=== PATIENT | female | born 1980 | race Caucasian/White ===

== ENCOUNTER → 2020-06-14 | Outpatient (CLI) | payer MEDICARE, OTHER ==
[~2020-06-14] MED LIST: ABILIFY MYCITE20 MG PO; CERTAVITE SR-A1 EACH PO; CLARITIN 10MG T10 MG PO; DEPAKOTE 250 M250 MG PO; DEPAKOTE500 MG PO; DYMISTA NASAL S23 GM; EUTHYROX112 MCG PO; FENOFIBRATE160 MG PO; FLONASE 0.05% N16 GM; IMIPRAMINE HCL25 MG PO; KAO-TIN240 MG PO; LASIX TAB 20 MG20 MG PO; OMNICEF 300 MG300 MG PO; OXYBUTYNIN CHLOR5 M1 PO; PHENERGAN 25 MG25 M1 PO; TRI-SPRINTEC T1 EACH PO
[2020-06-15 09:15] LABS: CREATININE, URINE 47.4 mg/dL (Not Estab.)
== END ==
LOC: US 10:35
PROVIDERS: Internal Medicine Nephrology
DX: N18.9 Chronic kidney disease, unspecified (principal)
CPT/HCPCS: 36415; 80053; 81001; 82043; 82570; 84156

== ENCOUNTER → 2020-06-19 | Outpatient (CLI) | payer MEDICARE, OTHER | LOC: LAB 14:43 | DX: N18.9 Chronic kidney disease, unspecified (principal); N39.0 Urinary tract infection, site not specified | CPT/HCPCS: 36415; 87077; 87086; 87186 ==

== ENCOUNTER → 2020-10-22 | Outpatient (CLI) | payer MEDICARE, OTHER ==
[2020-10-23 11:14] LABS: CREATININE, URINE 101.8 mg/dL (Not Estab.)
== END ==
LOC: LAB 09:04
PROVIDERS: Internal Medicine Nephrology
DX: N18.9 Chronic kidney disease, unspecified (principal)
CPT/HCPCS: 36415; 80053; 82043; 82570; 84156

== ENCOUNTER → 2021-03-27 | Outpatient (CLI) | payer MEDICARE, OTHER ==
[2021-03-28 08:13] LABS: A/G RATIO 1.2 (1.2-2.2); ALKALINE PHOSPHATASE, S 68 IU/L (44-121); ALT (SGPT) 23 IU/L (0-32); AST (SGOT) 27 IU/L (0-40); BILIRUBIN, TOTAL <0.2 mg/dL (0.0-1.2); BUN 14 mg/dL (6-20); BUN/CREATININE RATIO 10 (9-23); CALCIUM, SERUM 9.9 mg/dL (8.7-10.2); CARBON DIOXIDE, TOTAL 22 mmol/L (20-29); CHLORIDE, SERUM 102 mmol/L (96-106); CREATININE, SERUM 1.34 mg/dL (0.57-1.00); EGFR IF AFRICN AM 58 (>59); EGFR IF NONAFRICN AM 50 (>59); GLOBULIN, TOTAL 3.3 g/dL (1.5-4.5); GLUCOSE, SERUM 121 mg/dL (65-99); POTASSIUM, SERUM 4.5 mmol/L (3.5-5.2); PROTEIN, TOTAL, SERUM 7.3 g/dL (6.0-8.5); SODIUM, SERUM 138 mmol/L (134-144)
[2021-03-28 09:13] LABS: CREATININE, URINE 52.7 mg/dL (Not Estab.)
== END ==
LOC: LAB 08:59
PROVIDERS: Internal Medicine Nephrology
DX: N18.9 Chronic kidney disease, unspecified (principal)
CPT/HCPCS: 36415; 80053; 81001; 82043; 82570; 84156

== ENCOUNTER 2021-04-08 02:46 | Emergency (ER) | payer MEDICARE, OTHER ==
[2021-04-08 03:34] LABS: HEMOGLOBIN 12.5 gm/dl (12.3-15.3); RED BLOOD COUNT 4.43 M/UL (4.00-5.10); WHITE BLOOD COUNT 5.5 K/UL (4.5-11.0)
[2021-04-08] MEDS ORDERED: ZOFRAN 4 MG TAB4 MG PO (06:24)
[2021-04-08] MEDS ORDERED: PHENERGAN 25 MG25 M1 PO (06:24)
[2021-04-08] MEDS ORDERED: OMNICEF 300 MG300 MG PO (06:24)
[2021-04-08] MEDS ORDERED: TESSALON PERLES PO (06:27)
== END 2021-04-08 08:58 | disposition home or self-care (01) ==
LOC: ER1 02:46
PROVIDERS: Physician Assistant
DX: K91.0 Vomiting following gastrointestinal surgery (principal); U07.1 COVID-19; N39.0 Urinary tract infection, site not specified; N18.9 Chronic kidney disease, unspecified; G40.909 Epilepsy, unspecified, not intractable, without status epilepticus; E78.5 Hyperlipidemia, unspecified
CPT/HCPCS: 0240U; 80053; 81001; 82150; 83605; 83690; 85025; 87077; 87081; 87086; 87186; 87880; 96374; 96375; 99284; J0696; J2550

== ENCOUNTER → 2021-10-17 | Outpatient (CLI) | payer MEDICARE, OTHER ==
[~2021-10-17] MED LIST changes: +TESSALON PERLES PO; +ZOFRAN 4 MG TAB4 MG PO
[2021-10-18 21:12] LABS: CREATININE, URINE 121.5 mg/dL (Not Estab.)
== END ==
LOC: LAB 09:13
PROVIDERS: Internal Medicine Nephrology
DX: N18.9 Chronic kidney disease, unspecified (principal)
CPT/HCPCS: 36415; 80053; 81001; 82043; 82570; 84156